=== PATIENT | female | born 1995 | race Two or more races ===

== ENCOUNTER 2019-06-13 01:22 | Emergency (ER) | payer SELFPAY ==
[~2019-06-13] VITALS: Ht 152.4 cm; Wt 59.0 kg
[2019-06-13 01:52] VITALS: BP 113/56
[2019-06-13 02:20] LABS: BILIRUBIN,URINE NEGATIVE (NEG); CLARITY,URINE CLOUDY; COLOR,URINE YELLOW; NITRITE,URINE NEGATIVE (NEG); PH,URINE 5.5; PROTEIN,URINE 100 mg/dL (NEG-TRACE); UROBILINOGEN,URINE 0.2 mg/dL (0.2 mg/dL)
[2019-06-13] MEDS ORDERED: SULF1TAB24 PO (02:24)
[2019-06-13 02:26] LABS: SQUAMOUS EPITHELIAL CELL,UR FEW /LPF
[2019-06-13 02:27] LABS: BACTERIA,URINE MODERATE /HPF (0-FEW); RBC,URINE 20-40 /HPF (0-2); WBC,URINE 20-40 /HPF (0-4)
--- NOTE | 2019-06-13 05:15 | PHYS DOC ---
Past Medical History Past Medical History: No Pertinent History Past Surgical History: No Surgical History Alcohol Use: Occasionally Drug Use: None Adult General Chief Complaint Chief Complaint: PAIN ON URINATION [facility] Patient is a 23 year old F P/W DYSURIA BURNING WITH URINATION AND LOWER ABDO PAIN X TWO DAYS NO FEVER NO VOMITING NO VAGINAL DISCHARGE HX OBTAINED WITH [facility] Review of Systems Review of Systems Constitutional: Denies fever or chills [] Eyes: Denies change in visual acuity, redness, or eye pain [] Cardiovascular: No additional information not addressed in HPI [] GI: Integument: Denies rash or skin lesions [] Neurologic: Denies headache, focal weakness or sensory changes [] Endocrine: Denies polyuria or polydipsia [] All other systems were reviewed and found to be within normal limits, except as documented in this note. Allergies Allergies Allergies Coded Allergies Type Severity Reaction Last Updated Verified No Known Drug Allergies 06/13/19 No Physical Exam Physical Exam Constitutional: Well developed, well nourished, no acute distress, non-toxic appearance. [] HENT: Normocephalic, atraumatic, bilateral external ears normal, oropharynx moist, no oral exudates, nose normal. [] Eyes: PERRLA, EOMI, conjunctiva normal, no discharge. [] Neck: Normal range of motion, no tenderness, supple, no stridor. [] Abdomen: Bowel sounds normal, soft, MILD SUPRAPUBIC tenderness, no masses, no pulsatile masses. [] Skin: Warm, dry, no erythema, no rash. [] Back: No tenderness, no CVA tenderness. [] Extremities: No tenderness, no cyanosis, no clubbing, ROM intact, no edema. [] Neurologic: Alert and oriented X 3, normal motor function, normal sensory function, no focal deficits noted. [] Psychologic: Affect normal, judgement normal, mood normal. [] Current Patient Data Vital Signs Vital Signs Date Time Temp Pulse Resp B/P (MAP) Pulse Ox O2 Delivery O2 Flow Rate FiO2 06/13/19 01:52 99.7 102 20 113/56 (75) 97 99.7 Lab Values Laboratory Tests Test 06/13/19 02:12 06/13/19 02:15 Urine Collection Type Unknown Urine Color Yellow Urine Clarity Cloudy Urine pH 5.5 Urine Specific [place] 1.015 Urine Protein 100 mg/dL (NEG-TRACE) Urine Glucose (UA) Negative mg/dL (NEG) Urine Ketones (Stick) Negative mg/dL (NEG) Urine Blood Large (NEG) Urine Nitrite Negative (NEG) Urine Bilirubin Negative (NEG) Urine Urobilinogen Dipstick 0.2 mg/dL (0.2 mg/dL) Urine Leukocyte Esterase Large (NEG) Urine RBC 20-40 /HPF (0-2) Urine WBC 20-40 /HPF (0-4) Urine Squamous Epithelial Cells Few /LPF Urine Bacteria Moderate /HPF (0-FEW) Urine Mucus Slight /LPF POC Urine HCG, Qualitative Hcg negative (Negative) EKG EKG [] Radiology/Procedures Radiology/Procedures [] Course & Med Decision Making Course & Med Decision Making Pertinent Labs and Imaging studies reviewed. (See chart for details) 23-year-old female presenting with UTI symptoms prescription for antibiotics was provided return precautions discussed patient voiced understanding Dragon Disclaimer Dragon Disclaimer This electronic medical record was generated, in whole or in part, using a voice recognition dictation system. Departure Departure Impression: Primary Impression: Cystitis Disposition: HOME, SELF-CARE Condition: STABLE Patient Instructions: Urinary Tract Infection, [id number] Scripts Sulfamethoxazole/Trimethoprim (BACTRIM DS TABLET) 1 Each Tablet 1 TAB PO BID, #14 TAB Prov: DESI HOSKINS MD 06/13/19 DESI HOSKINS MD Jun 13, 2019 05:15
== END 2019-06-13 02:35 | disposition home or self-care (01) ==
LOC: ER 01:22
DX: N30.90 Cystitis, unspecified without hematuria (principal)
CPT/HCPCS: 81001; 81025; 87086; 87186; 99284